=== PATIENT | female | born 1990 | race Two or more races ===

== ENCOUNTER 2023-09-03 19:00 | Emergency (ER) | payer MEDICAID, OTHER ==
[~2023-09-03] VITALS: Ht 157.5 cm; Wt 53.6 kg
[2023-09-03] MEDS ORDERED: ONDANSETRON ODT 4 MG TAB PO ONE (19:45)
[2023-09-03 19:58] LABS: Basophils # (auto) 0 10 ^3/uL (0-0.2); Basophils % (auto) 0.2 % (0.0-2.0); Eosinophils # (auto) 0 10 ^3/uL (0-0.8); Eosinophils % (auto) 0.1 % (0.0-7.0); Hematocrit 40.1 % (36.0-46.0); Hemoglobin 13.1 g/dL (12.2-16.2); Lymphocytes # (auto) 1.3 10 ^3/uL (0.4-5.4); Lymphocytes % (auto) 16.6 % (10.0-50.0); Mean Corpuscular Hemoglobin 30.2 pg (28.0-32.0); Mean Corpuscular Hgb Conc. 32.6 g/dL (32.0-36.0); Mean Corpuscular Volume 92.7 fL (80.0-100.0); Monocytes # (auto) 0.4 10 ^3/uL (0-1.3); Monocytes % (auto) 5.1 % (0.0-12.0); Neutrophils # (auto) 6.3 10 ^3/uL (1.6-8.6); Nucleated Red Blood Cells % 0.1 %; Red Blood Cells 4.33 10^6/uL (4.0-5.20); Red Cell Distribution Width 13.7 % (11.8-14.3); White Blood Cell 8.1 10^3/uL (4.4-10.8)
[2023-09-03 20:10] LABS: Urine Bacteria FEW /hpf (None Seen); Urine Blood Negative /uL (Negative); Urine Clarity HAZY (Clear); Urine Color Yellow (Yellow); Urine Mucus FEW (None Seen); Urine Protein, UAD TRACE (Negative); Urine Specific Gravity 1.026 (1.001-1.035); Urine WBC 1 /hpf (0 - 5); Urine pH 7.5 (5.0-8.0)
[2023-09-03 20:11] LABS: Chloride 105 mmol/L (98-107); Potassium 3.5 mmol/L (3.5-5.1); Sodium 138 mmol/L (136-145)
[2023-09-03 20:12] LABS: Anion Gap 8 (5-15); Carbon Dioxide 25 mmol/L (20-30)
[2023-09-03 20:17] LABS: BUN/Creatinine Ratio 16.9 (10.0-20.0); Blood Urea Nitrogen 10 mg/dL (9-23); Glucose 129 mg/dL (74-106)
[2023-09-03 20:18] LABS: Lipase 48 U/L (12-53)
[2023-09-03] MEDS ORDERED: ZOFR4T PO (23:23)
[2023-09-03] MEDS ORDERED: ACET500T58 PO (23:23)
[2023-09-03 23:35] VITALS: BP 109/71; PULSE 107; RESP 17; TEMP 98.2; O2SAT 99
== END 2023-09-03 23:39 | disposition home or self-care (01) ==
LOC: ER 19:00
DX: Z32.01 Encounter for pregnancy test, result positive (principal); R10.2 Pelvic and perineal pain; R10.31 Right lower quadrant pain
CPT/HCPCS: 36415; 76775; 80048; 81001; 81025; 83690; 84702; 85025; 99284; Q0162

== ENCOUNTER 2023-09-06 16:30 | Emergency (ER) | payer MEDICAID ==
[~2023-09-06] VITALS: Ht 157.5 cm; Wt 51.0 kg
[~2023-09-06 16:30] MED LIST: ACET500T58 PO; ZOFR4T PO
[2023-09-06 18:25] VITALS: BP 122/69; PULSE 95; RESP 16; TEMP 98.2; O2SAT 99
== END 2023-09-06 18:52 | disposition home or self-care (01) ==
LOC: ER 16:30
DX: R89.1 Abnormal level of hormones in specimens from other organs, systems and tissues (principal); R10.2 Pelvic and perineal pain; Z79.899 Other long term (current) drug therapy
CPT/HCPCS: 36415; 84702